=== PATIENT | male | born 1985 | race Caucasian/White ===

== ENCOUNTER 2020-05-04 20:01 | Emergency (ER) | payer SELFPAY ==
[~2020-05-04] VITALS: Ht 197.9 cm; Wt 124.7 kg
[2020-05-04 20:57] LABS: BILIRUBIN,URINE NEGATIVE (NEGATIVE); CLARITY,URINE CLEAR; COLOR,URINE YELLOW; GLUCOSE, URINE (UA) NEGATIVE (NEGATIVE); KETONES,URINE NEGATIVE (NEGATIVE); LEUKOCYTE ESTERASE ,URINE NEGATIVE (NEGATIVE); NITRITE,URINE NEGATIVE (NEGATIVE); PH,URINE 6.5 (5-9); PROTEIN,URINE NEGATIVE (NEGATIVE)
[2020-05-04] MEDS ORDERED: FAMOTIDINE 20MG/2ML IV (PEPCID) IV STA (21:02)
--- NOTE | 2020-05-04 21:07 | ED Abdominal Pain ---
General Chief Complaint: Abdominal/GI Problems Stated Complaint: ABD PAIN Nursing Triage Note: PATIENT STATES THAT HE EXPERIENCES ABD PAIN ABOUT TWICE/YEAR FOR THE PAST 10-12 YEARS. THIS EPISODE STARTED THREE DAYS AGO ON THE LEFT AND HAS MOVED TO THE RIGHT. AT ONE POINT, HE WAS TOLD THAT IT WAS PANCREATITES, BUT HE QUESTIONS THE ACCURACY OF THIS. HE HAS TAKEN MOTRIN AND TYLENOL FOR PAIN AND HAS NOT SEEN A PHYSICIAN FOR THIS CURRENT EPISODE. Sepsis Screen: No Definite Risk Source of Information: Patient Exam Limitations: No Limitations History of Present Illness Date Seen by Provider: May 04, 2020 Time Seen by Provider: 20:40 Initial Comments Patient presents ER by private conveyance from home with his significant other umm and chief complaint for the past couple days he has had some progressive abdominal epigastric pain ranging from 8 out of 10 to a 9 out of 10 tonight that waxes and wanes and is worse with certain foods he eats. He says he gets worse fairly shortly after he eats. So he has been decreasing what he is eating. Last time he ate was at noon he had some [employer] [place] food. He has had this off and on for the past 10 years a couple times a year. He does not follow with a primary care doctor and has had a colonoscopy in [place] but no EGD. He is never had an ultrasound of his gallbladder. He was told that it might be pancreatitis. He does not drink alcohol or have diabetes that he is aware of. No trauma. He had a bowel movement normal formed this morning. No nausea or vomiting this time. He says typically he will treated at home with ibuprofen and decreasing oral intake. No history of abdominal surgeries. Allergies and Home Medications Allergies Coded Allergies: naproxen (Verified Allergy, Intermediate, HIVES, RASH, 05/04/20) Patient Home Medication List Home Medication List Reviewed: Yes Review of Systems Review of Systems Constitutional: No chills, No fever EENTM: No Blurred Vision, No Double Vision Respiratory: Denies Cough, Denies Shortness of Air Cardiovascular: Denies Chest Pain, Denies Lightheadedness Gastrointestinal: See HPI; Denies Abdomen Distended; Abdominal Pain; Denies Constipated, Denies Diarrhea, Denies Nausea Genitourinary: Denies Burning, Denies Discharge Musculoskeletal: No back pain, No joint pain All Other Systems Reviewed Negative Unless Noted: Yes Past Abbpfcm-[id number] Hx Patient Social History Alcohol Use: Denies Use Smoking Status: Never a Smoker Recent Infectious Disease Expo: No Physical Exam Vital Signs Vital Signs - First Documented 05/04/20 20:35 Temp 36.4 Pulse 86 Resp 18 B/P (MAP) 143/98 (113) Pulse Ox 97 O2 Delivery Room Air Capillary Refill : Less Than 3 Seconds Height/Weight/BMI Height: '" Weight: lbs. oz. kg; 31.00 BMI Method: General Appearance: WD/WN, mild distress HEENT: PERRL/EOMI, pharynx normal Neck: full range of motion, normal inspection Respiratory: lungs clear, normal breath sounds, no respiratory distress, no accessory muscle use Cardiovascular: normal peripheral pulses, regular rate, rhythm, no edema Peripheral Pulses: 2+ Radial Pulses (R), 2+ Radial Pulses (L) Gastrointestinal: normal bowel sounds (All 4 quadrants), soft, tenderness (Mild epigastric tenderness and moderate tenderness on palpation over the liver edge right upper quadrant on deep inspiration but no positive Badillo sign.), other (Negative for Rovsing sign, psoas sign or other mesenteric signs.) Extremities: normal range of motion, non-tender, normal inspection, normal capillary refill Neurologic/Psychiatric: alert, normal mood/affect, oriented x 3 Skin: normal color, warm/dry Progress/Results/Core Measures Results/Orders Lab Results Laboratory Tests Test 05/04/20 20:47 05/04/20 21:20 Range/Units Urine Color YELLOW Urine Clarity CLEAR Urine pH 6.5 5-9 Urine Specific [place] 1.010 L 1.016-1.022 Urine Protein NEGATIVE NEGATIVE Urine Glucose (UA) NEGATIVE NEGATIVE Urine Ketones NEGATIVE NEGATIVE Urine Nitrite NEGATIVE NEGATIVE Urine Bilirubin NEGATIVE NEGATIVE Urine Urobilinogen 0.2 < = 1.0 MG/DL Urine Leukocyte Esterase NEGATIVE NEGATIVE Urine RBC (Auto) TRACE-L NEGATIVE Urine RBC 0-2 /HPF Urine WBC NONE /HPF Urine Squamous Epithelial Cells NONE /HPF Urine Crystals NONE /LPF Urine Bacteria NEGATIVE /HPF Urine Casts NONE /LPF Urine Mucus NEGATIVE /LPF Urine Other FEW SPERM H /HPF Urine Culture Indicated NO White Blood Count 7.5 4.3-11.0 10^3/uL Red Blood Count 3.83 L 4.30-5.52 10^6/uL Hemoglobin 10.6 L 13.3-17.7 g/dL Hematocrit 32 L 40-54 % Mean Corpuscular Volume 82 80-99 fL Mean Corpuscular Hemoglobin 28 25-34 pg Mean Corpuscular Hemoglobin Concent 34 32-36 g/dL Red Cell Distribution Width 12.6 10.0-14.5 % Platelet Count 189 130-400 10^3/uL Mean Platelet Volume 9.1 9.0-12.2 fL Immature Granulocyte % (Auto) 0 % Neutrophils (%) (Auto) 67 42-75 % Lymphocytes (%) (Auto) 23 12-44 % Monocytes (%) (Auto) 8 0-12 % Eosinophils (%) (Auto) 2 0-10 % Basophils (%) (Auto) 0 0-10 % Neutrophils # (Auto) 5.0 1.8-7.8 10^3/uL Lymphocytes # (Auto) 1.7 1.0-4.0 10^3/uL Monocytes # (Auto) 0.6 0.0-1.0 10^3/uL Eosinophils # (Auto) 0.1 0.0-0.3 10^3/uL Basophils # (Auto) 0.0 0.0-0.1 10^3/uL Immature Granulocyte # (Auto) 0.0 0.0-0.1 10^3/uL Sodium Level 140 135-145 MMOL/L Potassium Level 3.0 L 3.6-5.0 MMOL/L Chloride Level 112 H 98-107 MMOL/L Carbon Dioxide Level 20 L 21-32 MMOL/L Anion Gap 8 5-14 MMOL/L Blood Urea Nitrogen 8 7-18 MG/DL Creatinine 0.80 0.60-1.30 MG/DL Estimat Glomerular Filtration Rate > 60 BUN/Creatinine Ratio 10 Glucose Level 90 70-105 MG/DL Calcium Level 6.9 L 8.5-10.1 MG/DL Corrected Calcium 7.5 L 8.5-10.1 MG/DL Total Bilirubin 0.4 0.1-1.0 MG/DL Aspartate Amino Transf (AST/SGOT) 12 5-34 U/L Alanine Aminotransferase (ALT/SGPT) 16 0-55 U/L Alkaline Phosphatase 47 40-136 U/L C-Reactive Protein High Sensitivity 3.66 H 0.00-0.50 MG/DL Total Protein 5.7 L 6.4-8.2 GM/DL Albumin 3.3 3.2-4.5 GM/DL Lipase 189 H 8-78 U/L My Orders Orders - SAMMY PALMER Ua Culture If Indicated (05/04/20 20:33) Cbc With Automated Diff (05/04/20 21:02) Comprehensive Metabolic Panel (05/04/20 21:02) Hs C Reactive Protein (05/04/20 21:02) Lipase (05/04/20 21:02) Lidocaine 2% Viscous 15 Ml (Xylocaine Vi (05/04/20 21:15) Antacid Suspension (Mylanta Suspension (05/04/20 21:15) Famotidine Injection (Pepcid Injection) (05/04/20 21:02) Ed Iv/Invasive Line Start (05/04/20 21:02) Lactated Ringers (Lr 1000 Ml Iv Solution (05/04/20 21:15) Ct Abdomen/Pelvis W (05/04/20 21:56) Hydrocodone/Apap 5/325 Tablet (Lortab 5 (05/04/20 22:15) Iohexol Injection (Omnipaque 350 Mg/Ml 1 (05/04/20 22:30) Received Contrast (Hold Metformin- Contr (05/04/20 22:30) Sodium Chloride Flush (Catheter Flush Sy (05/04/20 22:30) Ns (Ivpb) (Sodium Chloride 0.9% Ivpb Bag (05/04/20 22:30) Medications Given in ED Current Medications Medications Dose Ordered Sig/Sampson Route Start Time Stop Time Status Last Admin Dose Admin Acetaminophen/ Hydrocodone Bitart 1 ea ONCE ONCE PO 05/04/20 22:15 05/04/20 22:16 DC 05/04/20 22:06 1 EA Al Hydrox/Mg Hydrox/Simethicone 30 ml ONCE ONCE PO 05/04/20 21:15 05/04/20 21:16 DC 05/04/20 21:39 30 ML Iohexol 100 ml ONCE ONCE IV 05/04/20 22:30 05/04/20 22:31 DC 05/04/20 22:33 100 ML Lactated Ringer's 1,000 ml @ 0 mls/hr Q0M ONCE IV 05/04/20 21:15 05/04/20 21:16 DC 05/04/20 21:40 999 MLS/HR Lidocaine HCl 15 ml ONCE ONCE PO 05/04/20 21:15 05/04/20 21:16 DC 05/04/20 21:39 15 ML Sodium Chloride 10 ml NEEDED PRN IV 05/04/20 22:30 05/04/20 22:33 10 ML Sodium Chloride 100 ml ONCE ONCE IV 05/04/20 22:30 05/04/20 22:31 DC 05/04/20 22:33 80 ML Vital Signs/I&O 05/04/20 20:35 Temp 36.4 Pulse 86 Resp 18 B/P (MAP) 143/98 (113) Pulse Ox 97 O2 Delivery Room Air Blood Pressure Mean: 113 Progress Progress Note #1: Time: 21:05 Progress Note GI cocktail, Pepcid and labs. Differential includes pancreatitis, gastritis, gastroenteritis, gallbladder. If the GI cocktail does not help then we can try some fentanyl and get a CT otherwise we can set him up with a local surgeon to do further work-up outpatient. A liter of lactated Ringer's. Progress Note #2: Time: 23:08 Progress Note GI cocktail did nothing for his pain. However the [place] took his pain down to a 1 out of 10 and he is much more comfortable. His IV fluids without concluded and his nausea is nonexistent. Progressing home with some pain and nausea medicines and instructions for return precautions. Diagnostic Imaging Diagonstic Imaging: CT Plain Films/CT/US/NM/MRI: abdomen, pelvis Comments Edematous enlargement proximal pancreas with mild peripancreatic inflammatory changes consistent with pancreatitis. No acute findings in the remaining solid abdominal organs. Negative for radiopaque gallstones or biliary duct dilatation. Mild secondary duodenitis. Negative for lower GI tract obstruction or pneumatosis. No findings of appendicitis. Mild bladder wall thickening correlate for cystitis. Negative for pneumoperitoneum or loculated fluid collection. Reviewed: Reviewed by Me Departure Impression Primary Impression: Pancreatitis Qualified Codes: K85.90 - Acute pancreatitis without necrosis or infection, unspecified Disposition: 01 HOME, SELF-CARE Condition: Improved Departure-Patient Inst. Decision time for Depature: 23:08 Referrals: NO,LOCAL PHYSICIAN (PCP) Primary Care Physician Patient Instructions: Chronic Pancreatitis (DC), LOCAL PHYSICIAN LIST Add. Discharge Instructions: We could not discover the reason for your pancreatitis tonight I would like you to follow-up with a primary care doctor to do some further evaluation outpatient. If you have pain use Tylenol 650 mg every 8 hours as necessary. Tums, Maalox, Rolaids etc. may be helpful. Warm heating pads and distraction may also help. If you are still having severe pain and you may use hydrocodone 1 tablet every 6 hours as necessary for breakthrough pain. Hydrocodone will cause drowsiness, constipation. Constipation can be treated with Colace once a day or MiraLAX once a day. Ondansetron/Zofran 1 tablet every 6 hours under the tongue as necessary for nausea and/or vomiting. Return to the ER for severe, intractable symptoms. Make sure you are drinking plenty of fluids and stick to a liquid diet until your symptoms are improving. Avoid fatty foods, spicy foods. Pantoprazole 40 mg daily until your symptoms resolve to reduce stomach acid. All discharge instructions reviewed with patient and/or family. Voiced und erstanding. Scripts Ondansetron (Ondansetron Odt) 4 Mg Tab.rapdis 4 MG PO Q6H PRN for NAUSEA/VOMITING, #15 TAB 0 Refills Prov: SAMMY PALMER 05/04/20 Hydrocodone/Acetaminophen (Hydrocodone-Acetamin 5-325 mg) 1 Each Tablet 1 TAB PO Q6H PRN for PAIN-MODERATE (5-7), #12 TAB 0 Refills Prov: SAMMY PALMRE 05/04/20 Pantoprazole Sodium (Pantoprazole Sodium) 40 Mg Tablet.dr 40 MG PO DAILY for 7 Days, #7 TAB 0 Refills Prov: SAMMY PALMER 05/04/20 Work/School Note: Work Release Form Date Seen in the Emergency Department: May 04, 2020 Return to Work: May 07, 2020 Restrictions: No Restrictions SAMMY PALMER May 04, 2020 21:07
[2020-05-04 21:09] LABS: BACTERIA,URINE NEGATIVE /HPF; RBC,URINE 0-2 /HPF; URINE OTHER FEW SPERM /HPF
[2020-05-04] MEDS ORDERED: ANTACID SUSP 30 ML UDC (MYLANTA) PO ONE (21:15)
[2020-05-04] MEDS ORDERED: LIDOCAINE 2% VISCOUS 15 ML UDC PO ONE (21:15)
[2020-05-04] MEDS ORDERED: LACTATED RINGERS 1,000 ML IV ONE (21:15)
[2020-05-04 21:30] LABS: BASOPHILS % (AUTO) 0 % (0-10); EOSINOPHILS # (AUTO) 0.1 10^3/uL (0.0-0.3); EOSINOPHILS % (AUTO) 2 % (0-10); HEMATOCRIT 32 % (40-54); HEMOGLOBIN 10.6 g/dL (13.3-17.7); LYMPHOCYTES # (AUTO) 1.7 10^3/uL (1.0-4.0); LYMPHOCYTES % (AUTO) 23 % (12-44); MEAN CORPUSCULAR HEMOGLOBIN 28 pg (25-34); MEAN CORPUSCULAR HGB CONC 34 g/dL (32-36); MEAN CORPUSCULAR VOLUME 82 fL (80-99); MEAN PLATELET VOLUME 9.1 fL (9.0-12.2); MONOCYTES # (AUTO) 0.6 10^3/uL (0.0-1.0); MONOCYTES % (AUTO) 8 % (0-12); NEUTROPHILS % (AUTO) 67 % (42-75); PLATELET COUNT 189 10^3/uL (130-400); WHITE BLOOD COUNT 7.5 10^3/uL (4.3-11.0)
[2020-05-04 21:39] LABS: ALBUMIN 3.3 GM/DL (3.2-4.5); CHLORIDE 112 MMOL/L (98-107); SODIUM 140 MMOL/L (135-145)
[2020-05-04 21:41] LABS: CALCIUM 6.9 MG/DL (8.5-10.1)
[2020-05-04 21:42] LABS: GLUCOSE 90 MG/DL (70-105); TOTAL PROTEIN 5.7 GM/DL (6.4-8.2)
[2020-05-04 21:43] LABS: CARBON DIOXIDE 20 MMOL/L (21-32)
[2020-05-04 21:44] LABS: BILIRUBIN,TOTAL 0.4 MG/DL (0.1-1.0)
[2020-05-04 21:45] LABS: ALKALINE PHOSPHATASE 47 U/L (40-136)
[2020-05-04 21:46] LABS: GFR ESTIMATED > 60
[2020-05-04 21:47] LABS: BUN/CREATININE RATIO 10
[2020-05-04 21:48] LABS: ALANINE AMINOTRANSFERASE 16 U/L (0-55)
[2020-05-04 21:49] LABS: LIPASE 189 U/L (8-78)
[2020-05-04] MEDS ORDERED: HYDROcodone/APAP 5 MG/325 MG (LORTAB) TAB PO ONE (22:15)
[2020-05-04] MEDS ORDERED: CATHETER FLUSH 10 ML SYR IV PRN (22:30)
[2020-05-04] MEDS ORDERED: NS 100 ML (IVPB) BAG IV ONE (22:30)
[2020-05-04] MEDS ORDERED: IOHEXOL 350 MG/ML 100 ML (OMNIPAQUE 350) VIAL IV ONE (22:30)
[2020-05-04] MEDS ORDERED: HOLD METFORMIN - RECEIVED CONTRAST 20 ML VIAL IV SCH (22:30)
[2020-05-04] MEDS ORDERED: RX-ONDANSETRON 4 MG ODT (ZOFRAN) PPK #4 PO STA (23:06)
[2020-05-04] MEDS ORDERED: ACHD5005 PO (23:14)
[2020-05-04] MEDS ORDERED: PANT40TA52 PO (23:14)
[2020-05-04] MEDS ORDERED: ONDA4TAB11 PO (23:14)
[2020-05-04] MEDS ORDERED: RX-HYDROCODONE/APAP 5/325 MG #4 TAB PK PO PRN (23:15)
[2020-05-04 23:32] VITALS: BP 135/89
--- NOTE | 2020-05-05 08:12 | Diagnostic Imaging Report ---
PROCEDURE: CT abdomen and pelvis with contrast. TECHNIQUE: Multiple contiguous axial images were obtained through the abdomen and pelvis after administration of intravenous contrast. Auto Exposure Controls were utilized during the CT exam to meet ALARA standards for radiation dose reduction. All CT scans use one or more of the following dose optimizing techniques: automated exposure control, MA and/or KvP adjustment based on patient size and exam type or iterative reconstruction. INDICATION: Right upper quadrant pain. COMPARISON STUDIES: None FINDINGS: The pancreas is edematous with mild stranding. No ductal dilatation is present. No ascites is identified. Lung bases are clear with no pleural effusions. Liver, gallbladder, spleen, pancreas, adrenal glands and kidneys are normal. Mild urinary bladder wall thickening is present possible cystitis. Correlate with urinalysis. Bowel loops demonstrate no inflammatory or obstructive changes. There is no evidence of appendicitis. No ascites, loculated fluid collections or free air is present. There is no abnormal adenopathy. Vascular structures are normal. The osseous structures appear unremarkable. IMPRESSION: 1. There is a mild appendicitis. No ductal dilatation is present. There is associated inflammation around the duodenum. 2. Mild urinary bladder wall thickening is present. Correlate with urinalysis. Findings agree with [facility] report. Dictated by: Dictated on workstation # [id number]
== END 2020-05-04 23:33 | disposition home or self-care (01) ==
LOC: ER 20:05
DX: K85.90 Acute pancreatitis without necrosis or infection, unspecified (principal); I10 Essential (primary) hypertension; Z88.6 Allergy status to analgesic agent
CPT/HCPCS: 36415; 74177; 80053; 81000; 83690; 85025; 86141